=== PATIENT | female | born 1985 | race Caucasian/White ===

== ENCOUNTER 2017-12-20 19:30 | Emergency (ER) | payer MEDICAID ==
[~2017-12-20] VITALS: Ht 144.8 cm; Wt 73.0 kg
[~2017-12-20 19:30] MED LIST: NORE1TAB99
[2017-12-20] MEDS ORDERED: IBUPROFEN 600MG TABLET PO ONE (21:15)
[2017-12-20] MEDS ORDERED: BACITRACIN ZINC OINT UDPKT TOP ONE (23:00)
[2017-12-20 23:30] VITALS: BP 138/90
== END 2017-12-20 23:31 | disposition home or self-care (01) ==
LOC: ER 19:30
DX: S67.191A Crushing injury of left index finger, initial encounter (principal); I10 Essential (primary) hypertension; F41.9 Anxiety disorder, unspecified; M41.9 Scoliosis, unspecified; W22.8XXA Striking against or struck by other objects, initial encounter; Y93.89 Activity, other specified; Y92.018 Other place in single-family (private) house as the place of occurrence of the external cause
CPT/HCPCS: 29130; 73140; 81025; 99284